=== PATIENT | male | born 1935 | race Caucasian/White ===

== ENCOUNTER 2016-11-03 03:54 | Inpatient (IN) | payer MEDICARE ==
[2016-11-03] VITALS (9 sets, daily range): BP systolic 116–135; BP diastolic 49–73; PULSE 83–109; RESP 20–24; O2SAT 91–95
[~2016-11-03] VITALS: Ht 185.4 cm; Wt 103.2 kg
[~2016-11-03 03:54] MED LIST: SERT50TA PO; SIMV10TA4 PO; WARF4TAB PO
--- NOTE | 2016-11-03 03:57 | ED.REPORT ---
HPI-Chest Pain 40 and Over Date of Service Nov 03, 2016 ED Provider: Dewey Mcqueen MD Patient is a 80 year old male with a cardiac pacemaker and a history of atrial fibrillation on Warfarin, coronary artery disease, hypertension, and hyperlipidemia who presents to the ED via EMS due to generalized weakness causing ground level fall this morning. The patient states that he got up to go to the bathroom and he suddenly became weak, falling to the ground. He laid on the ground for nearly an hour and stated that he was unable to get up on his own. He is unable to clarify if he hit his head. His heard him calling for her and she called EMS. EMS reports that on arrival they found the patient pale and diaphoretic lying on the ground. He was tachycardic, hypotensive, and had a O2 sat of 92% on 4L oxygen. He is afebrile. Patient reports some bilateral hip pain but denies any other injuries. His states that the patient was behaving normally all day yesterday, with the exception of the patient vomiting after dinner at 6pm. She states that the patient has not complained of chest pain, abdominal pain, or shortness of breath. Patient is hard of hearing and states that he left his hearing aids at home, which limits the patient's ability to provide meaningful history. Nursing Notes Stated Complaint: ALTERED MENTAL STATUS Nursing Notes Reviewed: Yes Allergies: Coded Allergies: No Known Allergies (Verified Allergy, Unknown, 03/11/16) Scheduled Sertraline HCl (Zoloft) 50 Mg Tablet 50 MG PO DAILY Simvastatin (Simvastatin) 10 Mg Tablet 10 MG PO HS Warfarin Sodium (Coumadin) 4 Mg Tablet 4 MG PO DAILY General Time Seen by MD: 03:57 Chief Complaint Other (GLF, hip pain, weakness) Unable to Obtain Hx: Patient condition (limited, as patient is hard of hearing) Sudden in Onset?: No Onset Occurred: 1 - 4 hours ago Symptom Duration: Since onset Quality: Painful Severity: Current: Moderate Severity: Maximum: Moderate Recent Healthcare: No recent doctor visit, No recent hospitalization Similar Sx Previous: No Past Medical History Past Medical History History of "melanoma" on hands Hard of hearing Valvular heart disease (mild IA) BPH kidney stones with history of obstructive uropathy Reports: Cancer, Coronary artery disease, Hyperlipidemia, Hypertension Reports: Atrial fibrillation, Depression Past Surgical History 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 Family History Noncontributory Smoking History Former Smoker Social History Other Social History: Local resident Ambulatory Status Independent Review of Systems Unable to Obtain ROS Patient condition (limited by patient's hearing) Constitutional: Reports: Weakness - generalized, Denies: Fever Respiratory: Denies: Shortness of breath Cardiovascular: Denies: Chest pain GI: Reports: Nausea, Vomiting, Denies: Abdominal pain Musculoskeletal: Reports: Extremity pain Physical Exam Initial Vital Signs Vital Signs (First) Date Time Temp Pulse Resp B/P Pulse Ox O2 Delivery O2 Flow Rate FiO2 11/03/16 04:03 37.5 96 24 122/49 91 Nasal Cannula 4 Initial VS: Reviewed Head / Eyes: Atraumatic, Normocephalic, PERRL Psychiatric: Mood/affect normal, Behavior normal, Normal thought content General/Constitutional: Awake, Alert, Well hydrated Appearance / Presentation: Positive: Obese very hard of hearing Respiratory / Chest: Breath sounds NL, Breath sounds = bilat, No respiratory distress, No rales, No rhonchi, No wheezing Cardiovascular: Heart rate NL, Regular rhythm, Heart sounds NL Abdomen: Soft, Non-tender Organomegaly / Mass / Hernia: Positive: Hernia ventral, Negative: Hernia is tender Neck: Supple, Full range of motion Lower Extremity / Pelvis / MS: No deformity, Neurologic intact, Vascular intact Right Hip: Negative: Leg externally rotated, Leg shortened Left Hip: Negative: Leg externally rotated, Leg shortened indicates bilateral hip pain Skin: Color NL, Warm, Dry Neurologic: Speech NL, No motor deficits (moving all four extremities), No sensory deficits ENT: Airway patent, Mucous membranes moist Upper Extremity / MS: No deformity, Neurologic intact, Vascular intact Interpretation & Diagnostics Lab Results Interpretation Result Diagram: 11/03/16 0355 11/03/16 0355 Test 11/03/16 03:55 White Blood Count 13.0th/mm3 (3.8-10.1) Red Blood Count 4.39mil/mm3 (4.40-5.80) Hemoglobin 9.7g/dL (13.8-17.2) Hematocrit 35.8% (41.0-50.0) Mean Corpuscular Volume 81.5fL (81-100) Mean Corpuscular Hemoglobin 22.1pg (27.0-35.0) Mean Corpuscular Hemoglobin Concent 27.1% (32.0-37.0) Red Cell Distribution Width 16.0% (12.3-15.4) Platelet Count 300bil/L (150-400) Neutrophils (%) (Auto) 76.6% (40-74) Lymphocytes (%) (Auto) 13.2% (14-46) Monocytes (%) (Auto) 8.7% (4-12) Eosinophils (%) (Auto) 0.7% (0-5) Basophils (%) (Auto) 0.6% (0-3) Hold Purple Top Tube Received (Received) Prothrombin Time 14.3sec (8.1-12.5) Prothromb Time International Ratio 1.33ratio Activated Partial Thromboplast Time 28.7sec (22.8-33.0) D-Dimer 0.8mg/L (<0.50) Hold Blue Top Tube Received (Received) Sodium Level 140mEq/L (134-144) Potassium Level 4.0mEq/L (3.5-5.2) Chloride Level 102mEq/L (97-108) Carbon Dioxide Level 16mmol/L (18-29) Blood Urea Nitrogen 18mg/dL (8-27) Creatinine 1.09mg/dL (0.76-1.27) Estimat Glomerular Filtration Rate 69mL/min (>59) Glucose Level 146mg/dL (60-99) Calcium Level 8.7mg/dL (8.5-10.1) Magnesium Level 1.7mg/dL (1.6-2.6) Total Bilirubin 0.6mg/dL (0.0-1.2) Aspartate Amino Transf (AST/SGOT) 14U/L (0-50) Alanine Aminotransferase (ALT/SGPT) 8U/L (0-44) Alkaline Phosphatase 73U/L (25-160) Total Creatine Kinase 63U/L (21-232) Creatine Kinase MB 1.3ng/mL (0.0-10.4) Creatine Kinase MB % % (0.0-5.0) Troponin T 0.010ug/L (0.0-0.011) Pro-B-Type Natriuretic Peptide 1001pg/mL (0-486) Total Protein 7.2g/dL (6.4-8.4) Albumin 3.6g/dL (3.4-5.0) Hold Red Top Tube Received (Received) Hold [place] Top Tube Received (Received) ECG Interpretation ECG Interpretation: Sinus rhythm, Rate 95 Intraventricular conduction delay. Q waves inferiorly and ST segment sagging anteriorly and laterally. No acute infarction. Paced? Time: 04:04 Interpreted by: ED physician X-Ray Chest Interpretation Chest Xray Interpretation: Impression: Right lower lobe pneumonia versus eventration of the right hemidiaphragm. View: Portable Interpretation / Wet Read by: Wet read ED physician X-Ray Interpretation Xray Interpretation: Impression: No acute fracture. X-Ray Ordered: Pelvis Interpretation / Wet Read by: Wet read ED physician CT Head Interpretation CONCLUSION: Moderate atrophy and periventricular white matter changes consistent with the patient's age. Encephalomalacia in both frontal lobes suggesting previous injury or infarct. Old lacunar infarcts bilaterally. No hemorrhage or other specific acute abnormality demonstrated. Radiologist: Mike Chatman MD 11/03/2016 - 4:36:[address] Chest Interpretation CONCLUSION: No evidence of pulmonary embolism or dissection on this somewhat limited exam due to motion artifact. No specific acute abnormality. Radiologist: Mike Chatman MD 11/03/2016 - 5:46:52 AM [facility] Study type: CT pulm angiogram Interpretation / Wet Read by: Interpret - Radiologist Re-Eval/Medical Decision Med Decision/Clinical Course 80-year-old with chronic A. fib on Coumadin and suffered a ground-level fall and was unable to get up for about an hour. He has persistent generalized weakness and no other particularly focal complaints. 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 His chest has a density in the right lower lobe that appeared to be a pneumonia, though there is not a distinct shadow sign on any of the long margins. He had a d-dimer elevation and the CT angiogram does not show pulmonary embolus, umbilicus did not show a definitive pneumonia. He had been started on pneumonia protocol with Rocephin and azithromycin for community [address] pneumonia. He is in any case generally weak, unable to ambulate which is new, and is mildly anticoagulated with an INR 1.33. He will require repeat CT scan in eight hours. He is admitted to the medicine service for further evaluation and management. Source of Hx: Old records Time of Eval: 04:28 Re-Evaluation/Progress Note: Patient is now joined by his , who is able to provide some additional history. Time of Eval: 05:45 Re-Evaluation/Progress Note: Informed the patient and his family of the plan for hospital admission. They understand and agree with this plan. Discussed the results of his labs, EKG, and x-rays. All questions were addressed. Consultation : Referral / Consult Name: Dai Hernandez DO Consulted With: Hospitalist Call Returned at: 05:58 Medicare Insurance Specialist: Will see patient, Agrees with eval, Agrees with plan, Accepts admit Note: Spoke with Dr. Hernandez, hospitalist, who agrees to accept admit. Counseled Regarding: Diagnosis, Lab results, Need for admission Discharge & Departure Primary Impression: Right lower lobe pneumonia Pneumonia type: due to unspecified organism Qualified Code: J18.9 - Pneumonia, unspecified organism Additional Impressions: Generalized weakness Fall from ground level Warfarin anticoagulation Disposition: ADMITTED TO HOSPITAL Discharge Condition All VS Reviewed: Yes Condition: Stable Referrals: Geovanny Shah DO (PCP) Scribe Attestation Portions of this note were transcribed by Gloria Danielle. I, Dr. Mcqueen personally performed the history, physical exam and medical decision-making; I reviewed and confirmed the accuracy of the information in the transcribed note. Signed by: Rhonda Reyes, 11/03/2016 0602 copies to: Geovanny Shah Christopher W MD Nov 03, 2016 03:57 Gloria Danielle Nov 03, 2016 04:11
[2016-11-03 04:14] LABS: BASOPHILS % (AUTO) 0.6 % (0-3); EOSINOPHILS % (AUTO) 0.7 % (0-5); MONOCYTES % (AUTO) 8.7 % (4-12); Mean Corpuscular Hemoglobin 22.1 pg (27.0-35.0); Mean Corpuscular Volume 81.5 fL (81-100); NEUTROPHILS % (AUTO) 76.6 % (40-74); Platelet Count 300 bil/L (150-400)
[2016-11-03 04:26] LABS: D-DIMER 0.8 mg/L (<0.50); INR 1.33 ratio
[2016-11-03 04:52] LABS: Creatine Kinase 63 U/L (21-232); Magnesium 1.7 mg/dL (1.6-2.6)
[2016-11-03] MEDS ORDERED: Azithromycin Inj 500 MG in Dextrose 5% w/Vial Mate 250 ML IV ONE (06:00)
[2016-11-03] MEDS ORDERED: cefTRIAXone 2,000 mg/D5W 50 mL IV Minibag Plus IV ONE ×2 (06:05)
[2016-11-03] MEDS ORDERED: Alum-Mag Hydrox-Simeth 30 mL Suspension PO PRN ×2 (06:40→08:15)
[2016-11-03] MEDS ORDERED: Polyethylene Glycol (PEG) 17 Gm Powder PO PRN ×2 (06:40→08:15)
[2016-11-03] MEDS ORDERED: Ondansetron 2 mg/mL 2 mL Inj IVPUSH PRN (06:40)
--- NOTE | 2016-11-03 07:38 | DRSVH ---
PROCEDURE: X-RAY CHEST ONE VIEW, PORTABLE ([id number]) INDICATIONS: fall, hip pain bilat TECHNIQUE: One view of the chest was acquired. COMPARISON: [facility], CT, CT ANGIO CHEST PE, 11/03/2016, 5:24. [facility], CR, XR CHEST 1VW (PORTABLE), 11/13/2015, 9:44. [facility], CR, XR CHEST 2VW, 08/29/2015, 8:26. FINDINGS: Surgical changes and devices: Left-sided pacer. Lungs and pleura: No pleural effusions or pneumothorax. Lungs are clear. Mediastinum: Mediastinal contours appear normal. Heart size is enlarged. Bones and chest wall: No suspicious bony lesions. Overlying soft tissues appear unremarkable. IMPRESSION: No acute process. Dictated by: Devora Valencia M.D. on 11/03/2016 at 7:35 Approved by: Devora Valencia M.D. on 11/03/2016 at 7:36
--- NOTE | 2016-11-03 07:39 | DRSVH ---
PROCEDURE: X-RAY PELVIS WITH BILATERAL HIPS ([id number]) INDICATIONS: fall, hip pain bilat TECHNIQUE: AP pelvis with lateral view(s) of the bilateral hip(s). COMPARISON: None. FINDINGS: Bones: No fractures or dislocations. Pelvic ring appears intact. No suspicious bony lesions. Soft tissues: The visualized bowel gas pattern is normal. No suspicious soft tissue calcifications. IMPRESSION: No acute fracture. No osseous lesion. If clinical suspicion and/or symptoms persist, fur ther assessment with repeat plainfilms, or advanced imaging (e.g., CT, MRI, or bone scan) may be help ful for further assessment. REFERENCE TEXT DELETE FROM FINAL REPORT Types of femoral neck fractures: subcapital, transcervical, basicervical, intertrochanteric, subtroch anteric. Dictated by: Devora Valencia M.D. on 11/03/2016 at 7:36 Approved by: Devora Valencia M.D. on 11/03/2016 at 7:37
--- NOTE | 2016-11-03 07:49 | DRSVH ---
PROCEDURE: CT BRAIN WITHOUT CONTRAST ([id number]) INDICATIONS: generalized weakness, GLF TECHNIQUE: Noncontrast 4.5 mm thick angled axial sections acquired from the foramen magnum to the vertex, with c oronal reformats. COMPARISON: None. FINDINGS: Image quality: Excellent. CSF spaces: Basal cisterns are patent. No extra-axial fluid collections. The ventricles are symmet preston in size and shape. Brain: No intracranial bleeds or masses. Chronic right anteromedial frontal lobe infarct is present . There is cerebral volume loss for age, with resultant ventricular and sulcal prominence. There are periventricular and deep white matter chronic small vessel ischemic changes. There is intracranial internal carotid artery atherosclerosis. Skull and face: Calvarium and visualized facial bones appear intact, without suspicious lesions. Sinuses: Visualized sinuses and mastoids are clear. IMPRESSION: 1. Volume loss and small vessel ischemic disease. 2. Chronic right frontal infarct. 3. No acute process. 4. Concordant with preliminary interpretation. Dictated by: Devora Valencia M.D. on 11/03/2016 at 7:46 Approved by: Devora Valencia M.D. on 11/03/2016 at 7:47
--- NOTE | 2016-11-03 07:56 | DRSVH ---
PROCEDURE: CT ANGIO CHEST PULMONARY EMBOLISM ([id number]) INDICATIONS: weakness, elevated d dimer TECHNIQUE: After the administration of intravenous contrast, 2 mm thick sections acquired from the pulmonary api vilma to the posterior costophrenic angles. 3-dimensional maximum intensity projection (MIP) coronal a nd sagittal reformats were then acquired through the thorax. For radiation dose reduction, the follo wing was used: automated exposure control, adjustment of mA and/or kV according to patient size. COMPARISON: [facility], CR, XR CHEST 1VW (PORTABLE), 11/03/2016, 4:29. [facility], CT, CT ANGIO CHEST PE, 11/13/2015, 11:35. FINDINGS: Image quality: Examination limited by motion artifact. Pulmonary arteries: Pulmonary arteries are normal in size, and demonstrate no intraluminal filling d efects to suggest central pulmonary embolism. Lungs and pleura: Previously seen 6 mm diameter right lower lobe nodule is unchanged. No pleural effu sions or pneumothorax. Central and peripheral airways are patent. Mediastinum: Heart size is normal, without pericardial effusion. There is calcification of the ramsey nary vasculature. A increased, mildly prominent mediastinal and hilar lymph nodes are present. 16 mm short axis precarinal lymph node is present. 15 mm short axis right, and 16 mm short axis left hilar lymph nodes are present. aorta is normal in caliber and enhancement. Esophagus is normal in caliber, without hiatal hernia. Bones and chest wall: Left-sided pacer. No suspicious bony lesions. Ribs and thoracic spine appear i ntact throughout. Thyroid gland is within normal limits. No axillary or supraclavicular adenopathy. Abdomen: Visualized portions of the upper abdomen demonstrate no change in bilateral adrenal nodules , no change in the low-density posterior splenic focus, and no change in the small low density focus involving the pancreatic body/tail junction. IMPRESSION: 1. No pulmonary embolus. 2. Mildly prominent mediastinal lymph nodes, possibly reactive. Followup chest CT with intravenous co ntrast in 3 months is recommended to ensure resolution, and to exclude underlying neoplasm. 3. No change in bilateral adrenal nodules, as well as low-density foci within the pancreas and spleen . 4. Coronary artery disease. 5. No change in 6 mm diameter right lower lobe nodule. Dictated by: Devora Valencia M.D. on 11/03/2016 at 7:47 Approved by: Devora Valencia M.D. on 11/03/2016 at 7:53
[2016-11-03] MEDS ORDERED: OMEG-38 PO (09:05)
--- NOTE | 2016-11-03 10:33 | NUR ---
ADMIT Patient arrived on floor at 0700, off going o and m supervisor RN completed admission, med rec completed by admit RN. Oriented to room and call light, DVD played for patient and family. Patient very [place]. Patient on 4L O2 (baseline) maintaining sats in mid 90s. Bed low and locked, call light in reach, care and rounding ongoing.
[2016-11-03] MEDS: 0.9% Sodium Chloride 1,000 ML IV SCH ×2 (11:05→19:32)
--- NOTE | 2016-11-03 14:50 | NUR ---
Social Work-initial assessment: Data:See initial assessment. Pt is a 80 y/o male who was admitted on 11/03/16 for Pneumonia per H&P. Pt's insurance is [facility] and PCP is Geovanny Shah MD. EMR Reviewed. KARTHIKEYAN met with pt and Gayla at bedside to discuss discharge planning, SW role explained. Pt is alert and oriented x3. Pt resides at [facility] [place] [facility] [place] where he remains independent with ADLs. Pt uses a cane at baseline and does not drive. Pt has had HH in the past through [facility] and has no SNF history. Pt has no termite control servicer care insurance and no VA benefits. SW discussed DPOA/ advanced directive, pt's states they have completed this, SW encouraged them to bring a copy into the hospital. Pt is currently on O2, but this is not pt's baseline. Pt may benefit from PT evaluation. Pt's anticipates pt to return home. SW provided phone number and plan on white board in room. R/O HH needs.F2F in folder. SW will continue to follow. Assessment:Pt who is independent at baseline. Plan:Pt to discharge home when medically stable via POV. R/O HH services. PT evaluation is pending. F2F in folder. SW will continue to follow. JOSE JUAN Beyer Addendum: 11/03/16 at 1458 by BERTA JOHNS SS Amended: Links added.
--- NOTE | 2016-11-03 17:23 | PCM.HPMED ---
Subjective Date of Service Nov 03, 2016 Primary Provider: Admitting Physician: Dai Hernandez DO Primary Care Physician: Geovanny Shah DO Attending Physician: Dai Hernandez DO Chief Complaint: Shortness of breath History of Present Illness: Patient is a 80-year-old gentleman who lives at home with his who presented with the complaint of increasing shortness of breath. The patient states that for the last few days he has had an increase in shortness of breath but denies any chest pain, fever, chills, nausea, vomiting, diarrhea. The patient was found to be hypoxic in the emergency room but responded to oxygen therapy. The states that she too has also been sick lately and that the patient may have caught the cold that she may have had. The patient was found to be influenza A positive and admitted for supportive care. 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 Please see HPI for pertinent positives. Physical Exam: GEN: Patient was awake, alert, responding appropriately to questions HEENT: PERRLA, EOMI, Neck soft supple, trachea midline, nomocephalic/atraumatic , mucous membranes dry CV: +S1/S2, RRR, positive systolic murmurs auscultated Respiratory: Coarse breath sounds, positive wheezing, no rales or rhonchi GI: +bowel sounds x4, soft, compressible, non TTP EXT: no c/c/e, left knee abrasion noted Neuro: CN II-XII grossly intact Psych: mood and affect were appropriate Assessment and Plan Leukocytosis in the setting of Influenza A positive -White blood cell count 13 -Lactic acid 1.5 -Maintain oxygen saturations at 92% or above -Continue supportive care -Blood cultures pending -We will continue to monitor Dehydration -Continue normal saline running at 100 mL an hour -We will continue to monitor Anemia -Hemoglobin and hematocrit 9.7/35.8 -We will continue to monitor ?UTI -Urine culture pending Hypertension -Currently controlled continue all home medications Hyperlipidemia -Continue simvastatin daily CAD -Patient is currently paced. DVT prophylaxis continue home warfarin per pharmacy to manage Diet: Regular Code Status: DNR/DNI VTE Mechanical Devices: Intermittant Pneumatic CD Resuscitation Status: DNR/DNI:Do Not Resuscitate/Intubate Michelle Medina DO Nov 03, 2016 17:23
--- NOTE | 2016-11-03 20:25 | PCM.CONPHA ---
Subjective Shortness of breath Objective Vital Signs Date Time Temp Pulse Resp B/P Pulse Ox O2 Delivery O2 Flow Rate FiO2 11/03/16 18:25 37.0 83 22 126/73 92 Nasal Cannula 3.50 11/03/16 14:00 37.1 91 22 116/66 91 Nasal Cannula 3.50 11/03/16 10:14 108 11/03/16 07:40 Supplement Oxygen 11/03/16 07:39 92 11/03/16 07:08 37.4 91 24 135/72 93 Nasal Cannula 4.50 11/03/16 06:21 109 20 131/62 95 Nasal Cannula 3 11/03/16 04:03 37.5 96 24 122/49 91 Nasal Cannula 4 Weight (Kilograms): 102.400 Height (Feet): 6 Height (Inches): 1.00 Test 11/03/16 03:55 11/03/16 07:13 11/03/16 11:00 White Blood Count 13.0th/mm3 (3.8-10.1) Red Blood Count 4.39mil/mm3 (4.40-5.80) Hemoglobin 9.7g/dL (13.8-17.2) Hematocrit 35.8% (41.0-50.0) Mean Corpuscular Volume 81.5fL (81-100) Mean Corpuscular Hemoglobin 22.1pg (27.0-35.0) Mean Corpuscular Hemoglobin Concent 27.1% (32.0-37.0) Red Cell Distribution Width 16.0% (12.3-15.4) Platelet Count 300bil/L (150-400) Neutrophils (%) (Auto) 76.6% (40-74) Lymphocytes (%) (Auto) 13.2% (14-46) Monocytes (%) (Auto) 8.7% (4-12) Eosinophils (%) (Auto) 0.7% (0-5) Basophils (%) (Auto) 0.6% (0-3) Hold Purple Top Tube Received (Received) Prothrombin Time 14.3sec (8.1-12.5) Prothromb Time International Ratio 1.33ratio Activated Partial Thromboplast Time 28.7sec (22.8-33.0) D-Dimer 0.8mg/L (<0.50) Hold Blue Top Tube Received (Received) Sodium Level 140mEq/L (134-144) Potassium Level 4.0mEq/L (3.5-5.2) Chloride Level 102mEq/L (97-108) Carbon Dioxide Level 16mmol/L (18-29) Blood Urea Nitrogen 18mg/dL (8-27) Creatinine 1.09mg/dL (0.76-1.27) Estimat Glomerular Filtration Rate 69mL/min (>59) Glucose Level 146mg/dL (60-99) Calcium Level 8.7mg/dL (8.5-10.1) Magnesium Level 1.7mg/dL (1.6-2.6) Total Bilirubin 0.6mg/dL (0.0-1.2) Aspartate Amino Transf (AST/SGOT) 14U/L (0-50) Alanine Aminotransferase (ALT/SGPT) 8U/L (0-44) Alkaline Phosphatase 73U/L (25-160) Total Creatine Kinase 63U/L (21-232) Creatine Kinase MB 1.3ng/mL (0.0-10.4) Creatine Kinase MB % % (0.0-5.0) Troponin T 0.010ug/L (0.0-0.011) Pro-B-Type Natriuretic Peptide 1001pg/mL (0-486) Total Protein 7.2g/dL (6.4-8.4) Albumin 3.6g/dL (3.4-5.0) Procalcitonin 0.23ng/mL (See Comment) Hold Red Top Tube Received (Received) Hold [place] Top Tube Received (Received) Lactic Acid Level 1.5mmol/L (0.4-2.0) Hold Urine Received (Received) Assessment/Plan Assessment/Plan WARFARIN PER PHARMACY ASSESMENT PLAN PT ON WARFARIN FOR A FIB. HIS HOME DOSE IS 4 MG HE DID NOT TAKE MED 11/01 ( DAY BEFORE ADMIT) INR SHORTLY AFTER ADMIT ( 11/03) WAS 1.33;A DOSE OF 4 MG WAS GIVEN. PT'S INR GOAL RANGE IS 2-3 HE IS ALSO ON SERTRALINE WHICH MAY HAVE AN IMPACT ON INR. PHARMACY WILL CHECK INR DAILY AND ADJUST DOSINGS NECESSARY [facility]CILLA [facility] . Alysha Zaragoza Nov 03, 2016 20:25
[2016-11-03 22:37] LABS: APPEARANCE,URINE SLIGHTLY CLOUDY (CLEAR,HAZY); COLOR,URINE DARK YELLOW (YELLOW)
[2016-11-03 22:38] LABS: OCCULT BLOOD,URINE LARGE (NEGATIVE); UROBILINOGEN,URINE NORMAL (NORMAL)
[2016-11-04] VITALS (9 sets, daily range): BP systolic 135–156; BP diastolic 76–80; PULSE 93–117; RESP 20–22; O2SAT 88–92
[2016-11-04 07:14] LABS: BASOPHILS % (AUTO) 0.9 % (0-3); EOSINOPHILS % (AUTO) 0.2 % (0-5); MONOCYTES % (AUTO) 12.4 % (4-12); Mean Corpuscular Hemoglobin 22.6 pg (27.0-35.0); Mean Corpuscular Volume 83.7 fL (81-100); NEUTROPHILS % (AUTO) 71.2 % (40-74); Platelet Count 162 bil/L (150-400)
[2016-11-04] MEDS: Ondansetron 2 mg/mL 2 mL Inj IVPUSH PRN (07:16)
[2016-11-04 07:38] LABS: INR 1.17 ratio
[2016-11-04] MEDS: 0.9% Sodium Chloride 1,000 ML IV SCH ×2 (07:54→17:03)
--- NOTE | 2016-11-04 11:20 | PCM.PHAPRO ---
Progress Shortness of breath RPh RR rtm Date Nov 04-Oct INR 1.33 1.17 INR change - -0.16 Warf Dose 4 MG DAILY 6 Initiated bridge , enox 100bid. stop when appropriate. Daryl Herrera Nov 04, 2016 11:20
--- NOTE | 2016-11-04 17:01 | PCM.PNMED ---
Subjective Date of Service Nov 04, 2016 Subjective Patient was examined at bedside today. Patient denies any chest pain, shortness of breath, nausea, diarrhea. Patient reports nausea Exam Vital Signs Vital Sign - Last Date Time Temp Pulse Resp B/P Pulse Ox O2 Delivery O2 Flow Rate FiO2 11/04/16 14:00 37.2 93 20 135/78 90 Nasal Cannula 3.50 Intake and Output 11/03/16 11/03/16 11/04/16 Cumulative From/Thru 15:00 23:00 07:00 11/03/16 04:03 - 11/04/16 06:55 Intake Total 1167 ml 1145 ml 2312 ml Output Total 150 ml 200 ml 350 ml Balance -150 ml 1167 ml 945 ml 1962 ml Intake Oral 500 ml 400 ml 900 ml IV Total 667 ml 745 ml 1412 ml Output Urine Total 150 ml 200 ml 350 ml # Voids 2 6 8 # Bowel Movements 0 1 1 Exam GEN: Patient was awake, alert, responding appropriately to questions HEENT: PERRLA, EOMI, Neck soft supple, trachea midline, nomocephalic/atraumatic , mucous membranes dry CV: +S1/S2, tachycardic, positive systolic murmurs auscultated Respiratory: Coarse breath sounds, positive wheezing, no rales or rhonchi GI: +bowel sounds x4, soft, compressible, non TTP EXT: no c/c/e, left knee abrasion noted, Neuro: CN II-XII grossly intact Psych: mood and affect were appropriate IVs and Medications Medications Reviewed: Medications were reviewed in detail Medications Current Medications Al Hydrox/Mg Hydrox/Simethicone 30 ml Q6H PRN PO; Start 11/03/16 at 06:40; Status Cancel Ondansetron HCl 4 to 8 mg Q4H PRN IVPUSH; Start 11/03/16 at 06:40; Status Cancel Senna 17.2 mg BID PRN PO; Start 11/03/16 at 06:40; Status Cancel Polyethylene Glycol 17 gm DAILY PRN PO; Start 11/03/16 at 06:40; Status Cancel Al Hydrox/Mg Hydrox/Simethicone 30 ml Q6H PRN PO; Start 11/03/16 at 08:15 Ondansetron HCl 4 to 8 mg Q4H PRN IVPUSH Last administered on 11/04/16 07:16; Admin Dose 4 MG; Start 11/03/16 at 08:15 Senna 17.2 mg BID PRN PO; Start 11/03/16 at 08:15 Polyethylene Glycol 17 gm 17 gm DAILY PRN PO; Start 11/03/16 at 08:15 Sodium Chloride 1,000 ml @ 100 mls/hr Q10H IV Last administered on 11/04/16 07 :54; Admin Dose 100 MLS/HR; Start 11/03/16 at 10:55 Sertraline HCl 50 mg DAILY PO Last administered on 11/04/16 09:14; Admin Dose 50 MG; Start 11/03/16 at 17:15 Atorvastatin Calcium 10 mg HS PO Last administered on 11/03/16 19:32; Admin Dose 10 MG; Start 11/03/16 at 21:00 Pharmacy Consult 1 ea DAILY@17 XX; Start 11/04/16 at 17:00 Calcium Carbonate 500 mg TIDWM PO Last administered on 11/04/16 11:59; Admin Dose 500 MG; Start 11/04/16 at 12:00 Enoxaparin Sodium 100 mg BID SUBQ Last administered on 11/04/16 11:58; Admin Dose 100 MG; Start 11/04/16 at 11:17 Lab and Diagnostics Result Diagram: 11/04/16 0650 11/04/16 0650 Assessment & Plan Assessment and Plan Leukocytosis in the setting of Influenza A positive -White blood cell count 13 yesterday currently 4.4 -Maintain oxygen saturations at 92% or above -Continue supportive care -Blood cultures -We negative 2 days will continue to monitor Dehydration -Continue normal saline running at 100 mL an hour -We will continue to monitor Anemia -Hemoglobin and hematocrit 9.7/35.8 -We will continue to monitor ?UTI -Urine culture pending Hypertension -Currently controlled continue all home medications Hyperlipidemia -Continue simvastatin daily CAD -Patient is currently paced. DVT prophylaxis continue home warfarin per pharmacy to manage Diet: Regular Code Status: DNR/DNI Disposition: Patient is currently progressing well. Patient is oxygen dependent and needs to be weaned off the oxygen. Patient is progressing well and monitor. VTE Mechanical Devices: Intermittant Pneumatic CD Resuscitation Status: DNR/DNI:Do Not Resuscitate/Intubate Michelle Medina DO Nov 04, 2016 17:01
[2016-11-05] VITALS (12 sets, daily range): BP systolic 117–160; BP diastolic 64–77; PULSE 73–114; RESP 20–24; O2SAT 58–99
[2016-11-05] MEDS: 0.9% Sodium Chloride 1,000 ML IV SCH (03:42)
--- NOTE | 2016-11-05 05:20 | NUR ---
O2 Needs/Pain/febrile: Pt was on 2L O2 NC with first assessment, RN noted O2 sats during the day to be around 90%. Prior to HS, pt desating low to mid 80's, pt placed on 5L O2 with oxymask, sats maintained around 90-94%, does desat to 80's and down to 70's on RA. Pt c/o LORD 5/10, Tylenol: effective. Pt was febrile at 38.3 at HS, Tylenol administered for LORD and temp. RN was passed in report that pt had been febrile during dayshift. Addendum: 11/05/16 at 0526 by BELA YODER RN Pt slept off/on throughout the night, pleasant and cooperative with care. at bedside. Addendum: 11/05/16 at 0620 by BELA YODER RN MD was made aware of O2 needs. No new orders at this time.
[2016-11-05 05:50] LABS: Mean Corpuscular Hemoglobin 22.3 pg (27.0-35.0); Mean Corpuscular Volume 84.9 fL (81-100)
[2016-11-05 06:02] LABS: INR 1.08 ratio
[2016-11-05] MEDS: Ondansetron 2 mg/mL 2 mL Inj IVPUSH PRN (10:55)
[2016-11-05] MEDS ORDERED: Albuterol-Ipratropium 3 mL Inhalation Solution ONE (11:24)
[2016-11-05] MEDS ORDERED: Albuterol-Ipratropium 3 mL Inhalation Solution NEB SCH (12:30)
--- NOTE | 2016-11-05 13:24 | PCM.PHAPRO ---
Progress Shortness of breath WARFARIN MANAGEMENT PER PHARMACY [facility] RR rtm DFF Date Nov 04-Nov 05-Oct INR 1.33 1.17 1.08 INR change - -0.16 -0.09 Warf Dose 4 MG DAILY 3 7.5 Sub-therapeutic INR that has down-trended since yesterday. Warfarin 3 mg given instead of 6 mg. Will increase the dose for today to warfarin 7.5 mg x 1 to make up difference of prior dose increase. Pharmacy will continue to monitor. Dane Khan, PharmD Dane Khan Nov 05, 2016 13:24
--- NOTE | 2016-11-05 13:40 | PCM.PNMED ---
Subjective Date of Service Nov 05, 2016 Subjective Patient was examined at bedside today. Patient denies any chest pain, nausea, vomiting, diarrhea. Patient still is having shortness of breath. Patient was actually up in a chair today which is an improvement. Nursing reported that the patient is still needing high flow oxygen in order to maintain saturations are 91%. Exam Vital Signs Vital Sign - Last Date Time Temp Pulse Resp B/P Pulse Ox O2 Delivery O2 Flow Rate FiO2 11/05/16 11:30 104 20 95 OxyMask 5.00 11/05/16 09:38 36.6 132/72 Intake and Output 11/04/16 11/04/16 11/05/16 Cumulative From/Thru 15:00 23:00 07:00 11/03/16 04:03 - 11/05/16 06:43 Intake Total 2190 ml 1083 ml 5585 ml Output Total 350 ml Balance 2190 ml 1083 ml 5235 ml Intake Oral 640 ml 1540 ml IV Total 1550 ml 1083 ml 4045 ml Output Urine Total 350 ml # Voids 4 12 # Bowel Movements 1 Exam Physical Exam: GEN: Patient was awake, alert, responding appropriately to questions HEENT: PERRLA, EOMI, Neck soft supple, trachea midline, nomocephalic/atraumatic CV: +S1/S2, RRR, no murmurs auscultated Respiratory: Coarse breath sounds, positive wheezing and rhonchi GI: +bowel sounds x4, soft, compressible, non TTP EXT: no c/c/e Neuro: CN II-XII grossly intact Psych: mood and affect were appropriate IVs and Medications Medications Reviewed: Medications were reviewed in detail Medications Current Medications Sertraline HCl 50 mg DAILY PO Last administered on 11/05/16 09:47; Admin Dose 50 MG; Start 11/03/16 at 17:15 Atorvastatin Calcium 10 mg HS PO Last administered on 11/04/16 20:49; Admin Dose 10 MG; Start 11/03/16 at 21:00 Pharmacy Consult 1 ea DAILY@17 XX; Start 11/04/16 at 17:00 Calcium Carbonate 500 mg TIDWM PO Last administered on 11/05/16 09:47; Admin Dose 500 MG; Start 11/04/16 at 12:00 Enoxaparin Sodium 100 mg BID SUBQ Last administered on 11/05/16 09:47; Admin Dose 100 MG; Start 11/04/16 at 11:17 Oseltamivir Phosphate 75 mg BID PO Last administered on 11/05/16 09:47; Admin Dose 75 MG; Start 11/04/16 at 20:30; Stop 11/09/16 at 08:31 Acetaminophen 650 mg Q6H PRN PO Last administered on 11/04/16 23:06; Admin Dose 650 MG; Start 11/04/16 at 22:50 Albuterol/ Ipratropium 3 ml Q4 NEB; Start 11/05/16 at 12:30; Stop 11/05/16 at 12 :30; Status DC Albuterol/ Ipratropium 3 ml Q4H NEB; Start 11/05/16 at 15:30 Lab and Diagnostics Result Diagram: 11/05/16 0527 11/05/16526 Assessment & Plan 80-year-old male presents with shortness of breath and acute respiratory distress secondary to influenza Leukocytosis in the setting of Influenza A positive -White blood cell count 13 yesterday currently 4.4 -Maintain oxygen saturations at 92% or above -Continue supportive care -Start prednisone 40 mg daily -Chest x-ray ordered for today -Start Incentive spirometry -Blood cultures negative 2 -We days will continue to monitor Dehydration (resolving) -Discontinue IV fluids -We will continue to monitor Anemia -Hemoglobin and hematocrit 8.3/30.7 yesterday, today 8.7/33.2 trending up -We will continue to monitor ?UTI -Urine culture currently no growth to date pending final results Hypertension -Start lisinopril 2.5 mg daily Hyperlipidemia -Continue simvastatin daily CAD -Patient is currently paced. DVT prophylaxis continue home warfarin per pharmacy to manage Diet: Regular Code Status: DNR/DNI Disposition: Patient still has very high demand oxygen needs. We will repeat the chest x-ray to rule out pneumonia as the patient has had increasing oxygen needs but has not had any leukocytosis, patient may have an atypical pneumonia or this could just be the effects of influenza A infection. We will continue to monitor and wean the patient off of oxygen as necessary. Steroid therapy has been started and we will see how the patient responds to this. VTE Mechanical Devices: Intermittant Pneumatic CD Resuscitation Status: DNR/DNI:Do Not Resuscitate/Intubate Time spent Greater than 35 minutes Michelle Medina DO Nov 05, 2016 13:39
--- NOTE | 2016-11-05 14:13 | DRSVH ---
PROCEDURE: X-RAY CHEST ONE VIEW, PORTABLE ([id number]) INDICATIONS: SOB, possible pneumonia in the setting of influenz TECHNIQUE: One view of the chest was acquired. COMPARISON: [facility], CR, XR CHEST 1VW (PORTABLE), 07/11/2015, 10:34. [facility], CR, XR CHEST 1VW (PORTABLE), 11/03/2016, 4:29. [facility], CT, CT ANGIO CHEST PE , 11/03/2016, 5:24. FINDINGS: Surgical changes and devices: Stable positioning of dual chamber left cardiac pacer. Lungs and pleura: No pleural effusions or pneumothorax. Lungs are clear, aside from medial bibasila r airspace opacities.. Mediastinum: Mediastinal contours appear normal. Heart size is normal. Bones and chest wall: No suspicious bony lesions. Overlying soft tissues appear unremarkable. IMPRESSION: Bibasilar atelectasis versus aspiration or pneumonia. Correlate clinically. Dictated by: Sami KAY Interpreted: Carlos Beyer MD on 11/05/2016 at 14:12 Transcribed by: GA on 11/05/2016 at 14:13 Approved by: Rico Beyer M.D. on 11/05/2016 at 14:18
[2016-11-05] MEDS: predniSONE 20 mg Tablet PO SCH (14:21)
[2016-11-05] MEDS: Albuterol-Ipratropium 3 mL Inhalation Solution NEB SCH ×2 (15:14→20:24)
[2016-11-05] MEDS ORDERED: Warfarin 5 MG, Warfarin 2.5 MG PO ONE ×2 (17:00)
[2016-11-06] VITALS (15 sets, daily range): BP systolic 92–124; BP diastolic 54–74; PULSE 68–104; RESP 18–22; O2SAT 88–97
[2016-11-06] MEDS: Albuterol-Ipratropium 3 mL Inhalation Solution NEB SCH ×6 (00:52→21:06)
--- NOTE | 2016-11-06 03:17 | ABG ---
DateTimeAnalyzed 03:12:00 -_ pH ____7.261 - 7.350 7.450 pCO2 ___63.8__ -mmHg 35.0 45.0 pO2 ___60.8__ -mmHg 69.0 116 HCO3- ___27.8__ -mmol/L 22.0 26.0 ABE ____0.7__ -mmol/L -2.0 2.0 tHb ____8.3__ -g/dL O2Hb ___87.8__ -% COHb ____1.2__ -% MetHb ____1.1__ -% sO2 ___89.9__ -% 25.0 FIO2 ___32.0__ -% Drawn By blf - Date/Time Notified____ 03:16:00 -_ Spontaneous_RR ___18.0__ -b/min Liter_Flow ____3.0__ -L/min Oxygen Device 1 _OXY MASK - Notified By blf - Notified Whom ___DR. FUIMAONO - B 767 -mmHg tO2 ___10.3__ -Vol% OrderingPhysicianInitials mf - Benji test _Positive -
[2016-11-06 04:31] LABS: Mean Corpuscular Volume 85.7 fL (81-100)
[2016-11-06 04:42] LABS: INR 1.21 ratio
--- NOTE | 2016-11-06 06:43 | NUR ---
decreased LOC electrical maintenance technician informed me that patient had 26 of vtach. Patient was difficult to arouse this morning. would open eyes and drift back to sleep. Vitals stable. 5L via oxymask. Charge nurse in to assess patient. MD notified. new order for Magnesium and stat ABG. MD notified of ABG and magnesium no new orders at this time. 02 3L via oxy mask 02 maintained between 88-92%. at 0600 patient more alert giving thumbs up helping turn from side to side for bed change.
[2016-11-06] MEDS: predniSONE 20 mg Tablet PO SCH (09:23)
--- NOTE | 2016-11-06 12:13 | PCM.PNMED ---
Subjective Date of Service Nov 06, 2016 Subjective Patient was examined at bedside today. Patient denies any chest pain, nausea, vomiting, diarrhea. Patient still reports shortness of breath and requires oxygen. The patient's infection seems to be improving. Exam Vital Signs Vital Sign - Last Date Time Temp Pulse Resp B/P Pulse Ox O2 Delivery O2 Flow Rate FiO2 11/06/16 09:55 36.3 91 20 124/74 91 OxyMask 3.00 Intake and Output 11/05/16 11/05/16 11/06/16 Cumulative From/Thru 15:00 23:00 07:00 11/03/16 04:03 - 11/06/16 06:42 Intake Total 0 ml 756 ml 50 ml 6391 ml Output Total 350 ml Balance 0 ml 756 ml 50 ml 6041 ml Intake Oral 0 ml 756 ml 50 ml 2346 ml IV Total 4045 ml Output Urine Total 350 ml # Voids 4 4 2 22 # Bowel Movements 2 3 1 7 Exam Physical Exam: GEN: Patient was awake, alert, responding appropriately to questions HEENT: PERRLA, EOMI, Neck soft supple, trachea midline, nomocephalic/atraumatic CV: +S1/S2, RRR, no murmurs auscultated Respiratory: Positive wheezing and rhonchi GI: +bowel sounds x4, soft, compressible, non TTP EXT: no c/c/e Neuro: CN II-XII grossly intact Psych: mood and affect were appropriate IVs and Medications Medications Reviewed: Medications were reviewed in detail Medications Current Medications Pharmacy Consult 1 ea DAILY@17 XX; Start 11/04/16 at 17:00 Oseltamivir Phosphate 75 mg BID PO Last administered on 11/06/16 09:23; Admin Dose 75 MG; Start 11/04/16 at 20:30; Stop 11/09/16 at 08:31 Acetaminophen 650 mg Q6H PRN PO Last administered on 11/04/16 23:06; Admin Dose 650 MG; Start 11/04/16 at 22:50 Albuterol/ Ipratropium 3 ml Q4 NEB; Start 11/05/16 at 12:30; Stop 11/05/16 at 12 :30; Status DC Albuterol/ Ipratropium 3 ml Q4H NEB Last administered on 11/06/16 09:02; Admin Dose 3 ML; Start 11/05/16 at 15:30 Prednisone 40 mg DAILY PO Last administered on 11/06/16 09:23; Admin Dose 40 MG ; Start 11/05/16 at 13:25; Stop 11/09/16 at 08:31 Lisinopril 2.5 mg DAILY PO Last administered on 11/06/16 09:23; Admin Dose 2.5 MG; Start 11/05/16 at 13:40 Lab and Diagnostics Result Diagram: 11/06/16 0416 11/06/16 0416 Assessment & Plan 80-year-old male presents with shortness of breath and acute respiratory distress secondary to influenza Leukocytosis in the setting of Influenza A positive causing acute respiratory failure -Leukocytosis resolved -Maintain oxygen saturations at 92% or above -Continue supportive care -Continue prednisone 40 mg daily -Chest x-ray ordered yesterday most likely consistent with atelectasis -Continue encouragement to use Incentive spirometry -Blood cultures negative 2 -We days will continue to monitor Dehydration (resolving) -Discontinue IV fluids -We will continue to monitor Anemia -Hemoglobin and hematocrit stable -We will continue to monitor ?UTI -Urine culture negative Hypertension -Controlled blood pressure was 124/74 -Continue lisinopril 2.5 mg daily Hyperlipidemia -Continue simvastatin daily CAD -Patient is currently paced. DVT prophylaxis continue home warfarin per pharmacy to manage Diet: Regular Code Status: DNR/DNI Disposition: Patient still has high demand oxygen needs. The patient's leukocytosis is now improved. Physical therapy has been consulted to start working with the patient and will continue to try and decrease the patient's oxygen needs. With the addition of steroids and Mucinex to help treat the patient's congestion hopefully this will help to decrease the patient's oxygen needs. Patient's acute respiratory failure is most likely secondary to influenza. Pneumonia still may be possible but at this time I would lean more towards atelectasis than pneumonia at this time. VTE Mechanical Devices: Intermittant Pneumatic CD Resuscitation Status: DNR/DNI:Do Not Resuscitate/Intubate Time spent Greater than 35 minutes Michelle Medina DO Nov 06, 2016 12:13
--- NOTE | 2016-11-06 13:16 | PCM.PHAPRO ---
Progress Shortness of breath WARFARIN MANAGEMENT PER PHARMACY RR rtm DFF DFF Nov 04-Nov 05-Oct 06-Nov 1.33 1.17 1.08 1.21 - -0.16 -0.09 0.13 4 MG DAILY 3 7.5 6 INR upternding but still sub-therapeutic as anticipated with no doses taken 11/01 -. Will give warfarin 6 mg today to combat the missed doses. Will consider dose change if trend drastically changes (increases). Pharmacy will continue to monitor. Dane Khan, PharmD Dane Khan Nov 06, 2016 13:16
[2016-11-06] MEDS: guaiFENesin 600 mg ER12 Tablet PO SCH ×2 (13:26→21:11)
--- NOTE | 2016-11-06 14:23 | NUR ---
MO signed with Gayla via phone. JOSE JUAN Beyer
--- NOTE | 2016-11-06 14:24 | NUR ---
Social Work-continued d/c planning: Data:EMR Reviewed. Pt is on day 3 of hospitalization for Pneumonia per H&P. Pt is not medically stable, anticipate multiple more days of hospitalization. Pt remains on 3 Liters of O2, which is not pt's baseline. MD to order PT evaluation to help determine pt's mobility. SW called and provided update. SW to follow up after PT evaluation to determine discharge needs. SW will continue to follow. Assessment:Pt who is independent at baseline. Plan:Pt to discharge home with and HH vs SNF. PT to evaluation for needs. SW will continue to follow. JOSE JUAN Beyer
--- NOTE | 2016-11-06 17:47 | NUR ---
Nausea Vomiting/02 sats.:: Patient has not had nausea and vomiting today . He has eaten all of his meals with no issues. Patients 02 sats have been in the high 80s . He has 3 liters of 03 on . He has alert and oriented and able to converse with nursing staff appropriately.
--- NOTE | 2016-11-06 20:01 | NUR ---
O2 Sat/SCD's O2 monitor indicated O2 sat 82%. Noted pt was not wearing NC. Replaced NC and continued pt at 3L O2. O2 sat increased to 88%. Reminded pt to keep NC in place to assist with oxygenation. Pt also refused SCD's, indicating he is doing ankle/foot rotations on his own. Bed locked and low. Call light within reach.
[2016-11-07] VITALS (13 sets, daily range): BP systolic 119–137; BP diastolic 58–78; PULSE 5–100; RESP 18–28; O2SAT 89–96
[2016-11-07] MEDS: Albuterol-Ipratropium 3 mL Inhalation Solution NEB SCH ×6 (00:43→21:27)
--- NOTE | 2016-11-07 00:44 | NUR ---
02 sat While sleeping, the patient O2 continued to desat into low to mid 80's. Placed patient on Oxymask and continued at 3LPM. Patient O2 sat increased to 88%. Discussed leaving Oxymask in place for the rest of the night with patient, patient agreed. Bed low and locked, call light within reach. Patient denies any further needs at this time.
--- NOTE | 2016-11-07 01:48 | PCM.PNMED ---
Subjective Date of Service Nov 07, 2016 Subjective Cross cover note. Nurse called reporting patient having tachycardia. Plan: Trial a dose of Coreg 3.125 mg PO may continue if effective Exam Vital Signs Vital Sign - Last Date Time Temp Pulse Resp B/P Pulse Ox O2 Delivery O2 Flow Rate FiO2 11/07/16 01:33 36.8 5 24 120/67 89 OxyMask 3.50 Intake and Output 11/06/16 11/06/16 11/07/16 Cumulative From/Thru 15:00 23:00 07:00 11/03/16 04:03 - 11/06/16 19:51 Intake Total 2414 ml 8805 ml Output Total 350 ml Balance 2414 ml 8455 ml Intake Oral 2414 ml 4760 ml IV Total 4045 ml Output Urine Total 350 ml # Voids 4 26 # Bowel Movements 0 7 Lab and Diagnostics Result Diagram: 11/06/16 0416 11/06/16 0416 Assessment & Plan 80-year-old male presents with shortness of breath and acute respiratory distress secondary to influenza Leukocytosis in the setting of Influenza A positive causing acute respiratory failure -Leukocytosis resolved -Maintain oxygen saturations at 92% or above -Continue supportive care -Continue prednisone 40 mg daily -Chest x-ray ordered yesterday most likely consistent with atelectasis -Continue encouragement to use Incentive spirometry -Blood cultures negative 2 -We days will continue to monitor Dehydration (resolving) -Discontinue IV fluids -We will continue to monitor Anemia -Hemoglobin and hematocrit stable -We will continue to monitor ?UTI -Urine culture negative Hypertension -Controlled blood pressure was 124/74 -Continue lisinopril 2.5 mg daily Hyperlipidemia -Continue simvastatin daily CAD -Patient is currently paced. DVT prophylaxis continue home warfarin per pharmacy to manage Diet: Regular Code Status: DNR/DNI Disposition: Patient still has high demand oxygen needs. The patient's leukocytosis is now improved. Physical therapy has been consulted to start working with the patient and will continue to try and decrease the patient's oxygen needs. With the addition of steroids and Mucinex to help treat the patient's congestion hopefully this will help to decrease the patient's oxygen needs. Patient's acute respiratory failure is most likely secondary to influenza. Pneumonia still may be possible but at this time I would lean more towards atelectasis than pneumonia at this time. VTE Mechanical Devices: Intermittant Pneumatic CD Resuscitation Status: DNR/DNI:Do Not Resuscitate/Intubate Kwadwo Zavala MD Nov 07, 2016 01:48
--- NOTE | 2016-11-07 05:53 | NUR ---
Per tele monitor, pt had 20+ runs of SVT w/ HR in the 140's since 2300. Pt denied chest px/pressure and remained asymptomatic. Dr. Dailey was contacted and ordered a one time dose of Corveg for rate control. Addendum: 11/07/16 at 0602 by SITA MCCAIN Corveg given at 0200. Per tele monitor, only 2 episodes of SVT w/ HR >120's. Pt remains asymptomatic. Will continue to monitor. Call light in reach, bed low and locked.
[2016-11-07 06:40] LABS: INR 1.69 ratio
[2016-11-07 06:45] LABS: Mean Corpuscular Hemoglobin 22.4 pg (27.0-35.0); Mean Corpuscular Volume 83.7 fL (81-100)
[2016-11-07] MEDS: predniSONE 20 mg Tablet PO SCH (08:01)
[2016-11-07] MEDS: guaiFENesin 600 mg ER12 Tablet PO SCH ×2 (08:02→22:36)
--- NOTE | 2016-11-07 13:33 | PCM.PHAPRO ---
Progress Shortness of breath WARFARIN MANAGEMENT PER PHARMACY RR rtm DFF DFF AK Nov 04-Nov 05-Oct 06-Nov 07-Nov 1.33 1.17 1.08 1.21 1.69 - -0.16 -0.09 0.13 0.48 4 MG DAILY 3 7.5 6 5 INR upternding but still sub-therapeutic as anticipated with no doses taken 11/01 -. Will give warfarin 5 mg today to combat the missed doses. Will consider dose change if trend drastically changes (increases). Pharmacy will continue to monitor. Dane Khan, PharmD Penelope Ferreira PharmD Nov 07, 2016 13:33
--- NOTE | 2016-11-07 16:02 | PCM.PNMED ---
Subjective Date of Service Nov 07, 2016 Subjective Patient was examined at bedside today. Patient denies any chest pain, nausea, vomiting, diarrhea. Patient states that he is feeling better however he is still short of breath. Patient states that he is able to sit up in a chair longer without becoming short of breath. Exam Vital Signs Vital Sign - Last Date Time Temp Pulse Resp B/P Pulse Ox O2 Delivery O2 Flow Rate FiO2 11/07/16 14:34 91 19 132/71 92 OxyMask 3.50 11/07/16 09:39 36.7 Intake and Output 11/06/16 11/06/16 11/07/16 Cumulative From/Thru 15:00 23:00 07:00 11/03/16 04:03 - 11/06/16 19:51 Intake Total 2414 ml 8805 ml Output Total 350 ml Balance 2414 ml 8455 ml Intake Oral 2414 ml 4760 ml IV Total 4045 ml Output Urine Total 350 ml # Voids 4 26 # Bowel Movements 0 7 Exam Physical Exam: GEN: Patient was awake, alert, responding appropriately to questions HEENT: PERRLA, EOMI, Neck soft supple, trachea midline, nomocephalic/atraumatic CV: +S1/S2, RRR, no murmurs auscultated Respiratory: Coarse breath sounds GI: +bowel sounds x4, soft, compressible, non TTP EXT: no c/c/e Neuro: CN II-XII grossly intact Psych: mood and affect were appropriate IVs and Medications Medications Reviewed: Medications were reviewed in detail Medications Current Medications Guaifenesin 1,200 mg Q12 PO Last administered on 11/07/16t 08:02; Admin Dose 1, 200 MG; Start 11/06/16 at 12:29 Lab and Diagnostics Result Diagram: 11/07/16 0549 11/06/16 0416 Assessment & Plan 80-year-old male presents with shortness of breath and acute respiratory distress secondary to influenza Leukocytosis in the setting of Influenza A positive causing acute respiratory failure -Leukocytosis resolved -Maintain oxygen saturations at 92% or above -Continue supportive care -Continue prednisone 40 mg daily -Chest x-ray ordered yesterday most likely consistent with atelectasis -Continue encouragement to use Incentive spirometry -Blood cultures negative 2 -We days will continue to monitor Dehydration (resolving) -Discontinue IV fluids -We will continue to monitor Anemia -Hemoglobin and hematocrit stable -We will continue to monitor ?UTI -Urine culture negative Hypertension -Controlled blood pressure was 124/74 -Continue lisinopril 2.5 mg daily Hyperlipidemia -Continue simvastatin daily CAD -Patient is currently paced. DVT prophylaxis continue home warfarin per pharmacy to manage Diet: Regular Code Status: DNR/DNI Disposition: Patient still has high demand oxygen needs. The patient's leukocytosis is now improved. The patient seems to be responding well since the addition of Mucinex and steroids. Physical therapy was instituted patient today will appreciate their recommendations. Respiratory therapy will evaluate the patient as he may need home oxygen. We will continue to monitor the patient and decrease his oxygen needs as the patient becomes more medically stable. VTE Mechanical Devices: Intermittant Pneumatic CD Resuscitation Status: DNR/DNI:Do Not Resuscitate/Intubate Time spent Greater than 35 minutes Michelle Medina DO Nov 07, 2016 16:02
--- NOTE | 2016-11-07 17:46 | NUR ---
Respiratory/Nausea: Patient continues to be on droplet and contact precautions for the Influenza A Virus. . He reports no nausea or vomiting or stomach issues. He has been able to eat all of his meals without issues. His 02 sat is in high 80s - 91 on 3 liters of 02. Patient continues to have shortness of breath with activity and he has a loose non productive cough.
[2016-11-08] VITALS (15 sets, daily range): BP systolic 115–148; BP diastolic 58–87; PULSE 70–122; RESP 18–24; O2SAT 90–96
[2016-11-08] MEDS: Albuterol-Ipratropium 3 mL Inhalation Solution NEB SCH ×5 (01:04→20:35)
--- NOTE | 2016-11-08 06:34 | NUR ---
Shift Note: Patient on 3L oxy mask, sats in high 80's-low 90's. Tele AV paced in the 70's, patient has a pacemaker. Incontinent of bowel and bladder, 1PA to stand for urinal. Patient on contact/droplet precautions for Influenza A, treated with PO Tamiflu. Patient very diaphoretic and cool, afebrile, blood glucose 129. Patient very hard of hearing, successful communication with notepad at bedside.
[2016-11-08 07:04] LABS: BASOPHILS % (AUTO) 0.2 % (0-3); EOSINOPHILS % (AUTO) 0.2 % (0-5); MONOCYTES % (AUTO) 8.3 % (4-12); Mean Corpuscular Hemoglobin 21.9 pg (27.0-35.0); Mean Corpuscular Volume 83.1 fL (81-100); NEUTROPHILS % (AUTO) 69.4 % (40-74); Platelet Count 194 bil/L (150-400)
[2016-11-08 07:34] LABS: INR 1.78 ratio
--- NOTE | 2016-11-08 09:59 | NUR ---
MO: Patient unable to sign for self, asked ORGANIC SECTION TECHNICAL LEAD to follow up with via phone.
[2016-11-08] MEDS: guaiFENesin 600 mg ER12 Tablet PO SCH ×2 (10:01→21:27)
[2016-11-08] MEDS: predniSONE 20 mg Tablet PO SCH (10:02)
--- NOTE | 2016-11-08 15:32 | PCM.PNMED ---
Subjective Date of Service Nov 08, 2016 Subjective Patient was seen and examined at bedside today. The patient still complains of shortness of breath and weakness. Nursing stated that the patient still has high oxygen needs but are trying to wean him at this time. Exam Vital Signs Vital Sign - Last Date Time Temp Pulse Resp B/P Pulse Ox O2 Delivery O2 Flow Rate FiO2 11/08/16 13:31 36.6 102 20 145/70 90 Nasal Cannula 2.50 Intake and Output 11/07/16 11/07/16 11/08/16 Cumulative From/Thru 15:00 23:00 07:00 11/03/16 04:03 - 11/08/16 06:29 Intake Total 340 ml 600 ml 9745 ml Output Total 350 ml Balance 340 ml 600 ml 9395 ml Intake Oral 340 ml 600 ml 5700 ml IV Total 4045 ml Output Urine Total 350 ml # Voids 2 6 34 # Bowel Movements 1 2 10 Exam Physical Exam: GEN: Patient was awake, alert, responding appropriately to questions HEENT: PERRLA, EOMI, Neck soft supple, trachea midline, nomocephalic/atraumatic CV: +S1/S2, RRR, no murmurs auscultated Respiratory: Coarse breath sounds, positive wheezing GI: +bowel sounds x4, soft, compressible, non TTP EXT: no c/c/e Neuro: CN II-XII grossly intact Psych: mood and affect were appropriate IVs and Medications Medications Reviewed: Medications were reviewed in detail Lab and Diagnostics Result Diagram: 11/08/1640 11/08/16 0640 Assessment & Plan 80-year-old male presents with shortness of breath and acute respiratory distress secondary to influenza Leukocytosis in the setting of Influenza A positive causing acute respiratory failure -Leukocytosis resolved -Maintain oxygen saturations at 92% or above -Continue supportive care -Continue prednisone 40 mg daily -Chest x-ray ordered yesterday most likely consistent with atelectasis -Continue encouragement to use Incentive spirometry -Blood cultures negative 2 -We days will continue to monitor Dehydration (resolving) -Discontinue IV fluids -We will continue to monitor Anemia -Hemoglobin and hematocrit stable -We will continue to monitor ?UTI -Urine culture negative Hypertension -Controlled blood pressure was 124/74 -Continue lisinopril 2.5 mg daily Hyperlipidemia -Continue simvastatin daily CAD -Patient is currently paced. DVT prophylaxis continue home warfarin per pharmacy to manage Diet: Regular Code Status: DNR/DNI Disposition: Patient still has high demand oxygen needs. However he is currently being weaned down off of the oxygen. The patient does still remained weak status post this influenza infection. Physical therapy is continuing to monitor the patient. The patient may be a candidate for half-way facility. But at this time we need to get the patient's oxygenation status under control. Once the patient's oxygen needs are under control the patient could potentially be discharged to a half-way facility. We will continue to have physical therapy work with the patient and have nursing wean the patient oxygen down. VTE Mechanical Devices: Intermittant Pneumatic CD Resuscitation Status: DNR/DNI:Do Not Resuscitate/Intubate Michelle Medina DO Nov 08, 2016 15:32
--- NOTE | 2016-11-08 15:56 | NUR ---
took over care at 3pm
--- NOTE | 2016-11-08 17:48 | NUR ---
Activity: Patient has been up in his chair x2 today. His condition continues to improve. His 02 sat is ranging from88% to 91% he is on 2.5-3 liters.
[2016-11-09] VITALS (15 sets, daily range): BP systolic 99–154; BP diastolic 64–80; PULSE 63–109; RESP 18–20; O2SAT 92–97
[2016-11-09] MEDS: Albuterol-Ipratropium 3 mL Inhalation Solution NEB SCH ×6 (00:18→20:50)
--- NOTE | 2016-11-09 03:25 | NUR ---
Tele/O2 Per senior telecommunications specialist, patient V paced and sometimes AV paced with PVC's, HR 80. He had 8 beats of V-tach around 2100. Tele informed us his pacemaker fails to sense sometimes. Patient was on 3L oxy mask with sat's in mid-90's. Lowered to 2L oxy mask and sat's remain at mid-90's. Continue care, discussion of future discharge to SNF.
[2016-11-09 05:45] LABS: Mean Corpuscular Hemoglobin 22.1 pg (27.0-35.0); Mean Corpuscular Volume 81.9 fL (81-100)
[2016-11-09 06:03] LABS: INR 2.13 ratio
--- NOTE | 2016-11-09 08:00 | PCM.PHAPRO ---
Progress Date of Service: Nov 09, 2016 Warfarin dosing A/ INR is now therapeutic at 2.13. P/ Resume home dose of warfarin today with 4mg and D/C enoxaparin bridging. Irvin Nolasco Nov 09, 2016 08:00
[2016-11-09] MEDS: predniSONE 20 mg Tablet PO SCH (09:29)
[2016-11-09] MEDS: guaiFENesin 600 mg ER12 Tablet PO SCH ×2 (09:29→22:19)
[2016-11-09] MEDS: levoFLOXacin 750 mg Tablet PO SCH (12:11)
--- NOTE | 2016-11-09 12:16 | NUR ---
VTach pt had 16 beats of Vtach and de-saturated to 79% while working with PT. notified. No chest pain or other s/s Addendum: 11/09/16 at 1240 by VINAYAK ISAACS RN Patient had 27 beats of Vtach not 16 , 4 seconds in Vpaced SR, and then 8 more beats of VTach. Patient was working with PT at the time and was asymptomatic. notified and ordered STAT ekg. continue to monitor
--- NOTE | 2016-11-09 14:10 | PCM.PNMED ---
Subjective Date of Service Nov 09, 2016 Subjective Patient was examined at bedside today. Patient denies any chest pain, nausea, vomiting, diarrhea. Patient still complains of shortness of breath and nursing stated patient still has high oxygen needs. Exam Vital Signs Vital Sign - Last Date Time Temp Pulse Resp B/P Pulse Ox O2 Delivery O2 Flow Rate FiO2 11/09/16 13:16 94 20 95 Nasal Cannula 2.00 11/09/16 09:58 36.4 136/77 Intake and Output 11/08/16 11/08/16 11/09/16 Cumulative From/Thru 15:00 23:00 07:00 11/03/16 04:03 - 11/09/16 06:44 Intake Total 300 ml 920 ml 43899 ml Output Total 540 ml 890 ml Balance -240 ml 920 ml 16665 ml Intake Oral 300 ml 920 ml 6920 ml IV Total 4045 ml Output Urine Total 540 ml 890 ml # Voids 3 4 41 # Bowel Movements 2 12 Exam Physical Exam: GEN: Patient was awake, alert, responding appropriately to questions HEENT: PERRLA, EOMI, Neck soft supple, trachea midline, nomocephalic/atraumatic CV: +S1/S2, RRR, no murmurs auscultated Respiratory: Coarse breath sounds, positive wheezing, rhonchi GI: +bowel sounds x4, soft, compressible, non TTP EXT: no c/c/e Neuro: CN II-XII grossly intact Psych: mood and affect were appropriate IVs and Medications Medications Reviewed: Medications were reviewed in detail Medications Current Medications Levofloxacin 750 mg DAILYAC PO Last administered on 11/09/16t 12:11; Admin Dose 750 MG; Start 11/09/16 at 10:25 Lab and Diagnostics Result Diagram: 11/09/1651911/09/16519 Assessment & Plan 80-year-old male presents with shortness of breath and acute respiratory distress secondary to influenza Leukocytosis in the setting of Influenza A positive causing acute respiratory failure -Leukocytosis resolved -Maintain oxygen saturations at 92% or above -Continue supportive care -Continue prednisone 40 mg daily -Chest x-ray ordered yesterday most likely consistent with atelectasis -Continue encouragement to use Incentive spirometry -Blood cultures negative 2 -Respiratory therapy to evaluate for possible home O2 -We days will continue to monitor Pneumonia -Patient remains to have coarse breath sounds and rhonchi x-ray 2 days ago noted the patient to have atelectasis versus pneumonia. This may be pneumonia for this particular patient will start patient on Levaquin 750 daily and azithromycin 500 mg daily Dehydration (resolving) -Discontinue IV fluids -We will continue to monitor Anemia -Hemoglobin and hematocrit stable -We will continue to monitor ?UTI -Urine culture negative Hypertension -Controlled blood pressure was 124/74 -Continue lisinopril 2.5 mg daily Hyperlipidemia -Continue simvastatin daily CAD -Patient is currently paced. DVT prophylaxis continue home warfarin per pharmacy to manage Diet: Regular Code Status: DNR/DNI Disposition: Patient still has high demand oxygen needs. However he is currently being weaned down off of the oxygen. The patient seems to be stable at 1.5 L of oxygen while sitting however his oxygen demands admitted acutely increased to at least 3 L with movement. Patient is still considerably weak and physical therapy is working with the patient and has recommended a correction facility. We will now start treating the patient for pneumonia as this is a possibility that this is the underlying his influenza. The patient remains afebrile and white count has been normal. We will continue to have physical therapy work with the patient with the possibility of discharge home. Case management will contact the patient's as well as it seemed that the patient being discharged to a correction facility would be the best course of action for the patient however we will respect the patient's wishes if he desires to go home with home health. The patient may need to go home with oxygen and respiratory therapy will assess this. VTE Mechanical Devices: Intermittant Pneumatic CD Resuscitation Status: DNR/DNI:Do Not Resuscitate/Intubate Michelle Medina DO Nov 09, 2016 14:10
--- NOTE | 2016-11-09 16:04 | NUR ---
Social Work: Continued d/c planning Data: Pt is on day 6 of hospitalization. EMR reviewed, PT recommends SNF at this time. ADVISORY SERVICES ASSOCIATE met with pt regarding this recommendation, pt is very hard of hearing. Pt's spouse was in the room and states that their first choice is [facility] and second is [facility]. ADVISORY SERVICES ASSOCIATE referred pt to [facility] and [facility]. ADVISORY SERVICES ASSOCIATE will continue to follow. Assessment: Pt who is independent at baseline. Plan: Pt will likely d/c to SNF, [facility] (1st choice) and [facility] (2nd choice). ADVISORY SERVICES ASSOCIATE will continue to follow. JOSE JUAN Haider
--- NOTE | 2016-11-09 17:33 | NUR ---
Increased HR Pt's HR was sitting in the 150's-160's per electronic device monitor. with increased occurrences of V-tach. Pt is asymptomatic. Called MD on cell phone. Left message. Waiting on response back.
[2016-11-09] MEDS ORDERED: MeTOProlol 1 mg/mL 5 mL Inj IV ONE (18:45)
[2016-11-10] VITALS (13 sets, daily range): BP systolic 115–168; BP diastolic 61–87; PULSE 73–106; RESP 20–24; O2SAT 90–95
[2016-11-10] MEDS: Albuterol-Ipratropium 3 mL Inhalation Solution NEB SCH ×4 (00:05→21:04)
--- NOTE | 2016-11-10 06:30 | NUR ---
Tele/02/Discharge Patient AV paced, HR in 80's, runs of PVC's, Afib underlined. Pacemaker fails to sense sometimes. Patient given one time dose Lopressor 5mg IV push to help with rate control, had previous Vtach of 27 runs on day shift. Patient on 1.5L NC and sat's remained in low 90's. Anticipate discharge to SNF in next day or two or potentially home on . Continue to monitor tele and O2.
[2016-11-10 06:56] LABS: Mean Corpuscular Hemoglobin 21.9 pg (27.0-35.0); Mean Corpuscular Volume 81.1 fL (81-100)
[2016-11-10 07:25] LABS: INR 1.95 ratio
[2016-11-10] MEDS: guaiFENesin 600 mg ER12 Tablet PO SCH ×2 (09:24→20:43)
[2016-11-10] MEDS: levoFLOXacin 750 mg Tablet PO SCH (09:24)
--- NOTE | 2016-11-10 09:57 | PCM.PHAPRO ---
Progress Date of Service: Nov 10, 2016 Warfarin dosing A/ INR is slightly sub therapeutic at 1.95. P/ Giving 5mg of warfarin today and follow. Irvin Nolasco Nov 10, 2016 09:57
--- NOTE | 2016-11-10 14:00 | NUR ---
Social Work: Continued d/c planning Data: Pt is on day 7 of hospitalization. EMR reviewed, pt discussed in rounds. [facility] accept pt. [facility] likely [facility], but is getting back to BILLING REPRESENTATIVE later today. Pt's first choice is [facility]. BILLING REPRESENTATIVE will continue to follow. Assessment: Pt who is independent at baseline. Plan: Pt will d/c to SNF, [facility] has accepted and is pt's first choice, [facility] to get back to BILLING REPRESENTATIVE regarding acceptance. BILLING REPRESENTATIVE will continue to follow. JOSE JUAN Haider Addendum: 11/10/16 at 1431 by CARLY MYERS [facility] can also accept pt. JOSE JUAN Haider
--- NOTE | 2016-11-10 14:00 | NUR ---
MO signed Verbal consent to sign by pt's spouse over phone. JOSE JUAN Haider
--- NOTE | 2016-11-10 16:02 | PCM.PNMED ---
Subjective Date of Service Nov 10, 2016 Subjective denies any new issues/complaints Exam Vital Signs Vital Sign - Last Date Time Temp Pulse Resp B/P Pulse Ox O2 Delivery O2 Flow Rate FiO2 11/10/16 14:30 36.4 77 20 115/61 94 Nasal Cannula 1.00 Intake and Output 11/09/16 11/09/16 11/10/16 Cumulative From/Thru 15:00 23:00 07:00 11/03/16 04:03 - 11/10/16 06:17 Intake Total 590 ml 1073 ml 84609 ml Output Total 500 ml 350 ml 1740 ml Balance 90 ml 723 ml 95419 ml Intake Oral 590 ml 1073 ml 8583 ml IV Total 4045 ml Output Urine Total 500 ml 350 ml 1740 ml # Voids 2 2 45 # Bowel Movements 1 13 General: Alert, Cooperative, No Acute Distress, Other (extremely hard of hearing) Eyes: PERRLA, EOMI, Scleral Anicteric Mouth: Mucous Membr Moist/Barnhart Neck: Supple Chest & Lungs: Chest Wall Normal, Clear to auscultation & percussion Cardiovascular: Regular Rate/Rhythm Abdomen: Non-tender, Non-distended, Normoactive bowel tones, Soft Extremities: No cyanosis/clubbing/edma bilat Neurological: Grossly Neurologically Intact, Normal Speech IVs and Medications Medications Reviewed: Medications were reviewed in detail Lab and Diagnostics Result Diagram: 11/10/1664411/10/16644 Assessment & Plan 80-year-old male with history of Hypertension, BPH, CAD, 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 poa. - Leukocytosis resolved - Maintain oxygen saturations at 92% or above - Continue supportive care - prednisone stopped on 11/09 - treated with Tamiflu from 11/04 - 11/09 # Suspected acute Pneumonia on admission - bacterial infection seems clinically unlikely at this time - stop Abx at this time and f/u # Acute Dehydration. poa. - resolved # Anemia. chronic. - Hemoglobin and hematocrit stable - We will continue to monitor # Hypertension. chronic. stable - Continue lisinopril 2.5 mg daily # Hyperlipidemia - Continue simvastatin daily # History of Afib and tachy-chloe syndrome post pacemaker - appreciate cardiology interrogating pacer today - c/w Coumadin - f/u daily INR Dispo: 1-2 days VTE Mechanical Devices: Intermittant Pneumatic CD Resuscitation Status: DNR/DNI:Do Not Resuscitate/Intubate Time spent 35 min Al Myers Nov 10, 2016 16:02
--- NOTE | 2016-11-10 19:35 | CONS ---
[address] [address] CONSULTATION REPORT PATIENT: AMADOU HUERTA : 1935 MR#: [id number] ADMIT: 11/03/2016 JOB ID: [id number] DATE OF SERVICE: 11/10/2016 CHIEF COMPLAINT: Shortness of breath. HISTORY OF PRESENT ILLNESS: The patient was admitted November 03 with shortness of breath. He denies any chest pain, fever or chills. He reports sick contacts. He was found to have influenza A. Cardiology is consulted to assist with management because he has had irregular wide complex tachycardia on telemetry and I am asked to interrogate his device. PAST MEDICAL HISTORY: 1. Paroxysmal AFib and sick sinus syndrome status post dual-chamber [employer] permanent pacemaker implanted by Dr. Perez in 2014. 2. Hypertension. 3. Hyperlipidemia. 4. Melanoma on hands. 5. Hearing loss. REVIEW OF SYSTEMS: Unobtainable because the patient is so hard of hearing he cannot understand he questions even when yell very loudly. SOCIAL HISTORY: He is a retired ironworker apprentice. He used to drink heavily but quit in 1990. He is a former smoker and quit in 1990. ALLERGIES: No known drug allergies. CURRENT MEDICATIONS IN THE HOSPITAL: 1. Sertraline 50 mg daily. 2. Lisinopril 2.5 mg daily. 3. Lipitor 10 mg daily. 4. Albuterol inhaler. 5. Cough syrup. PHYSICAL EXAMINATION: A very pleasant man, hard of hearing and difficult to have a conversation with him. Up to go back before in my right after I talk about his medications the review of systems unobtainable because patient is so hard of hearing. He cannot understand the questions is 11 LDL very lousy. Vital signs: Temperature 36.6, blood pressure 115/61, pulse 73 up to 106 beats per minute. He is satting 92% to 95% on 2 liters nasal cannula. Well-nourished man, no apparent distress. Eyes: No scleral icterus. Heart: Normal S1, S2. No murmurs. Lungs are clear. Abdomen is soft with positive bowel sounds. No hepatosplenomegaly. Extremities are warm. No clubbing, cyanosis, edema. Skin: No rashes or lesions. LABORATORIES: Reviewed. ASSESSMENT AND PLAN: This is an 80-year-old man admitted with shortness of breath and hypoxia in the setting of influenza A virus. He initially required OxyMask but subsequently has done well with nasal cannula. He presented with leukocytosis and now that is resolved. He presented with left chest and likewise now that is resolved. His troponin T was negative x1. His transaminases were mildly elevated. AST 67, ALT 54. His INR was most recently 2. PLAN: 1. Paroxysmal AFib. Agree with Coumadin. He is not currently on metoprolol and I think if his blood pressure allows, he would really benefit from that medication for rate control when he had paroxysmal atrial fibrillation, so I will take the liberty of starting it. 2. In terms of device management, I will check his device and dictate a note separately. 3. Stroke prevention. Agree with warfarin dosed by pharmacist. 4. Elevated liver function tests. His liver function tests are improving and AST peaks up to 56 on hospital day one, and has been steadily coming down. It could be due to toxicity of influenza virus. It is very difficult to understand the cause. It could be due to hepatic congestion though that seems somewhat less likely. It seems to be improving even though she has been continued on a statin drug. So, there is no point to holding it and I think it is okay to go ahead and continue it. 5. Hypertension: His blood pressure has been intermittently uncontrolled, and I agree with starting him on SUHAIL inhibitor. Thank you very much for the opportunity to evaluate him.
--- NOTE | 2016-11-10 20:15 | PROCED ---
[address] [address] PROCEDURE NOTE PATIENT: AMADOU HUERTA : 1935 MR#: [id number] ADMIT: 11/03/2016 JOB ID: [id number] DATE OF SERVICE: 11/10/2016 POSTOPERATIVE DIAGNOSIS(ES): PREOPERATIVE DIAGNOSIS(ES): SURGEON: Michelle Duckworth MD REASON FOR INTERROGATION: The patient had rapid ventricular response noted on his telemetry strip November 09, 2016 and Cardiology was consulted to assist with management. Briefly, this is a [employer] device implanted by Dr. Perez in 2014. Data longevity 7.8 years. Lead parameters are normal. The patient is in DDDR mode with lower rate 70 beats per minute, upper tracking rate of 125 beats per minute and his capture threshold has not been checked since January. At that time it was good. He has been atrially paced 32% of the time, ventricularly paced 94% of the time. Counters were last cleared nine months ago. He had 5743 mode switch episodes. Most episodes are less than a minute long and the heart rate during the episode tends to run high between 140 up to 160 beats per minute, sometimes even faster than 160 beats per minute. Histogram representing his heart rate during mode switches is skewed and mostly the rate is 140-160 beats per minute during those episodes. The atrial fibrillation burden overall though is less than 1% of the time and appears to be steady based on the graph called AFib burden as a function of time. There are 8 EGMs available for review and it appears that he has significant and frequent episodes of AFib since his hospitalization. There was an atrial flutter with rapid ventricular response which occurred November 09 at 12 p.m. It lasted, according to the computer, about 8 seconds. The cycle lengths were 300 msec and the rate response was 1:1. He had a similar episode of atrial tachycardia November 10 at 12 p.m. and it lasted 26 seconds. This was atrial tachycardia with a cycle length of about 370 msec. This episode lasted 26 seconds. He had multiple other similar episodes so far today. At this moment in time, he is A sensed, V paced. The AV delay was programmed kind of short sensed AV delay 160 paced, AV delay is 180 msec. He has good ventricular escape so I think there is not much reason for him to be V paced si much. His capture threshold on this lead is 0.75 V at 0.4 msec. I prolonged his AV delay up to 225 msec, and he is basically A sensed, V sensed at this time. IMPRESSION: The patient had no ventricular tachycardia. His main issue has been basically atrial tachycardia and atrial flutter, and I think he would really benefit from beta zbigniew. Thank you very much for the opportunity to evaluate him.
[2016-11-11] MEDS: Albuterol-Ipratropium 3 mL Inhalation Solution NEB SCH ×4 (00:57→11:31)
[2016-11-11 02:04] VITALS: BP 149/79; PULSE 76; RESP 22; O2SAT 95
[2016-11-11 05:09] VITALS: BP 134/76; PULSE 79; RESP 22; O2SAT 94
--- NOTE | 2016-11-11 05:27 | NUR ---
NOC activity Pt is very [place]. Denies chest pain, sob, n/v and abd discomfort. Breathing Tx administered PRN by RT. HS meds administered as scheduled, VSS, Has been afebrile overnight.
[2016-11-11 07:24] LABS: INR 1.95 ratio
[2016-11-11 07:28] VITALS: PULSE 83; O2SAT 93
[2016-11-11] MEDS ORDERED: MeTOProlol XL 25 mg ER24 Tablet PO SCH (08:30)
[2016-11-11] MEDS: guaiFENesin 600 mg ER12 Tablet PO SCH (08:32)
[2016-11-11] MEDS ORDERED: LISI-571 PO (10:05)
[2016-11-11] MEDS ORDERED: METO25TA99 PO (10:05)
--- NOTE | 2016-11-11 10:48 | PCM.DIMED ---
Discharge Instructions Date of Service Nov 11, 2016 Dates of Hospitalization Nov 03, 2016 at 06:12 Discharge Diagnosis Discharge Diagnosis # Acute Influenza A respiratory infection. present on admission. Improved - Leukocytosis resolved - treated with Tamiflu from 11/04 - 11/09 # Suspected acute Pneumonia on admission - bacterial infection seems clinically unlikely at this time # Acute Dehydration. present on admission. Resolved # Anemia. chronic. stable # Hypertension. chronic. 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 Medication Instructions Goal INR is 2-3 Diet Low fat, Low Sodium, Heart Healthy Activity Other (as tolerarted and per physical therapy) Patient Instructions Recheck INR in 2-3 days and adjust Coumadin dose as needed with goal INR 2-3 Follow-up plan 1. Followup with primary care provider in 3-7 days Follow-up Provider: Geovanny Shah Masoud Nov 11, 2016 10:48
--- NOTE | 2016-11-11 11:28 | NUR ---
Social Work-discharge: Data:EMR Reviewed. Pt is on day 8 of hospitalization for pneumonia per H&P. Pt is medically stable for discharge at this time. PT continues to recommend SNF placement. KARTHIKEYAN confirmed with [facility] [phone] at [facility] and they are able to take pt today. UR specialist arranged faxed discharge orders to [facility]. [facility] arranged transport for 1300 with O2. KARTHIKEYAN updated pt's Gayla via phone and she is agreeable to plan. RN,UC,pt/family, and [facility] all updated and agreeable to plan. Assessment:Pt who would benefit from SNF. Plan:Pt to discharge to [facility] SNF today via [facility] at 1300. RN,UC,pt/family, and [facility] all updated and agreeable to plan. JOSE JUAN Beyer
[2016-11-11 11:32] VITALS: PULSE 87; O2SAT 94
[2016-11-11 11:39] VITALS: PULSE 91
--- NOTE | 2016-11-11 14:16 | NUR ---
Discharge Patient departed unit via wheelchair, accompanied by cabulance water truck driver. Patient alert and oriented at time of discharge. Patient able to maintain O2 sats while awake, desats and requires up to 2 Ltr while asleep. Patient very, very hard of hearing and using a tablet for nursing to write down communication for him to read. Patient continues to become short of breath with activity-improving. Nutritional intake and elimination adequate. Patient denied nausea or pain. Discharge instructions/medications reviewed with patient prior to discharge. All questions addressed. Patient belongings, discharge instructions and medications in hand. Report called to [facility]onia mu[facility]oz [facility].
--- NOTE | 2016-11-11 17:50 | PCM.DC.MED ---
Discharge Summary Date of Service Nov 11, 2016 Dates of Hospitalization Date of Hospital Admission Nov 03, 2016 at 06:12 Date of Discharge: Nov 11, 2016 Providers: Admitting Physician: Dai Hernandez DO Primary Care Physician: Geovanny Shah DO Attending Physician: Dai Hrenandez DO Diagnosis at Time of Discharge Diagnosis at Time of Discharge # Acute Influenza A respiratory infection. present on admission. Improved - Leukocytosis resolved - treated with Tamiflu from 11/04 - 11/09 # Suspected acute Pneumonia on admission - bacterial infection seems clinically unlikely at this time # Acute Dehydration. present on admission. Resolved # Anemia. chronic. stable # Hypertension. chronic. 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 Consultations 1. Cardiology Procedures XRay, CTs & MRIs Date of Service: 11/03/16 0504 PROCEDURE: CT ANGIO CHEST PULMONARY EMBOLISM ([id number]) IMPRESSION: 1. No pulmonary embolus. 2. Mildly prominent mediastinal lymph nodes, possibly reactive. Followup chest CT with intravenous contrast in 3 months is recommended to ensure resolution, and to exclude underlying neoplasm. 3. No change in bilateral adrenal nodules, as well as low-density foci within the pancreas and spleen. 4. Coronary artery disease. 5. No change in 6 mm diameter right lower lobe nodule. Dictated by: Devora Valencia M.D. on 11/03/2016 at 7:47 Approved by: Devora Valencia M.D. on 11/03/2016 at 7:53 Date of Service: 11/05/16 1322 PROCEDURE: X-RAY CHEST ONE VIEW, PORTABLE ([id number]) IMPRESSION: Bibasilar atelectasis versus aspiration or pneumonia. Correlate clinically. Dictated by: Sami KAY Interpreted: Carlos Beyer MD on 11/05/2016 at 14: 12 Transcribed by: GA on 11/05/2016 at 14:13 Approved by: Rico Beyer M.D. on 11/05/2016 at 14:18 Date of Service: 11/03/164 PROCEDURE: CT BRAIN WITHOUT CONTRAST ([id number]) IMPRESSION: 1. Volume loss and small vessel ischemic disease. 2. Chronic right frontal infarct. 3. No acute process. 4. Concordant with preliminary interpretation. Dictated by: Devora Valencia M.D. on 11/03/2016 at 7:46 Approved by: Devora Valencia M.D. on 11/03/2016 at 7:47 Date of Service: 11/03/16 0404 PROCEDURE: X-RAY PELVIS WITH BILATERAL HIPS ([id number]) IMPRESSION: No acute fracture. No osseous lesion. If clinical suspicion and/or symptoms persist, further assessment with repeat plainfilms, or advanced imaging (e.g., CT, MRI, or bone scan) may be helpful for further assessment. Dictated by: Devora Valencia M.D. on 11/03/2016 at 7:36 Approved by: Devora Valencia M.D. on 11/03/2016 at 7:37 Brief History As noted in H&P by Dr. Medina: Patient is a 80-year-old gentleman who lives at home with his who presented with the complaint of increasing shortness of breath. The patient states that for the last few days he has had an increase in shortness of breath but denies any chest pain, fever, chills, nausea, vomiting, diarrhea. The patient was found to be hypoxic in the emergency room but responded to oxygen therapy. The states that she too has also been sick lately and that the patient may have caught the cold that she may have had. The patient was found to be influenza A positive and admitted for supportive care. Hospital Course # Acute Influenza A respiratory infection. poa. - Leukocytosis resolved - Maintain oxygen saturations at 92% or above - Continue supportive care - prednisone stopped on 11/09 - treated with Tamiflu from 11/04 - 11/09 # Suspected acute Pneumonia on admission - bacterial infection seems clinically unlikely at this time - stop Abx at this time # Acute Dehydration. poa. - resolved # Anemia. chronic. - Hemoglobin and hematocrit stable # Hypertension. chronic. stable - started on Lisinopril and metoprolol per cardiology recs # Hyperlipidemia - Continue simvastatin daily # History of Afib and tachy-chloe syndrome post pacemaker - appreciate cardiology interrogating pacer - c/w Coumadin - f/u daily INR by day of d/c lungs CTA bilat. denies any further SOB Exam Vital Signs (Last) Date Time Temp Pulse Resp B/P Pulse Ox O2 Delivery O2 Flow Rate FiO2 11/11/16 11:39 91 11/11/16 11:32 94 Room Air 11/11/16 05:09 36.2 22 134/76 2.00 Test 11/03/16 03:55 11/03/16 07:13 11/03/16 11:00 11/07/16 05:49 Hold Purple Top Tube Received (Received) Activated Partial Thromboplast Time 28.7sec (22.8-33.0) D-Dimer 0.8mg/L (<0.50) Hold Blue Top Tube Received (Received) Total Creatine Kinase 63U/L (21-232) Creatine Kinase MB 1.3ng/mL (0.0-10.4) Creatine Kinase MB % % (0.0-5.0) Troponin T 0.010ug/L (0.0-0.011) Pro-B-Type Natriuretic Peptide 1001pg/mL (0-486) Hold Red Top Tube Received (Received) Hold [place] Top Tube Received (Received) Lactic Acid Level 1.5mmol/L (0.4-2.0) Urine Color Dark yellow (YELLOW) Urine Appearance Slightly cloudy Urine pH 6.0 (5.0-8.0) Urine Specific [place] 1.020 (1.003-1.035) Urine Protein 30mg/dL (NEG,TRACE) Urine Glucose (UA) Negativemg/dL (NEGATIVE) Urine Ketones Negativemg/dL (NEGATIVE) Urine Occult Blood Large (NEGATIVE) Urine Nitrite Negative (NEGATIVE) Urine Bilirubin Negative (NEGATIVE) Urine Urobilinogen Normalmg/dL (NORMAL) Urine Leukocyte Esterase Negative (NEGATIVE) Urine RBC 0-2/hpf (0-2) Urine WBC 0-5/hpf (0-5) Urine Epithelial Cells Many/hpf (NONE-MOD) Urine Crystals Amorphous phosphates Urine Bacteria None/hpf (NONE-FEW) Urine Hyaline Casts None/lpf (NONE) Urine Granular Casts None seen (NONE SEEN) Urine Waxy Casts None seen (NONE SEEN) Urine Red Blood Cell Casts None seen (NONE SEEN) Urine White Blood Cell Casts None seen (NONE SEEN) Urine Mucus Present (None Seen) Urine Trichomonas None seen (NONE SEEN) Urine Yeast None (NONE SEEN) Urine Culture Reflexed Not indicated Hold Urine Received (Received) Ionized Calcium 1.22mmol/L (1.17-1.32) Test 11/08/16 06:40 11/09/16 17:34 11/10/16 06:45 11/10/16 06:56 Neutrophils (%) (Auto) 69.4% (40-74) Lymphocytes (%) (Auto) 21.7% (14-46) Monocytes (%) (Auto) 8.3% (4-12) Eosinophils (%) (Auto) 0.2% (0-5) Basophils (%) (Auto) 0.2% (0-3) Total Bilirubin 0.2mg/dL (0.0-1.2) Aspartate Amino Transf (AST/SGOT) 67U/L (0-50) Alanine Aminotransferase (ALT/SGPT) 54U/L (0-44) Alkaline Phosphatase 50U/L (25-160) Total Protein 6.0g/dL (6.4-8.4) Albumin 3.1g/dL (3.4-5.0) Magnesium Level 1.9mg/dL (1.6-2.6) White Blood Count 6.2th/mm3 (3.8-10.1) Red Blood Count 3.75mil/mm3 (4.40-5.80) Hemoglobin 8.2g/dL (13.8-17.2) Hematocrit 30.4% (41.0-50.0) Mean Corpuscular Volume 81.1fL (81-100) Mean Corpuscular Hemoglobin 21.9pg (27.0-35.0) Mean Corpuscular Hemoglobin Concent 27.0% (32.0-37.0) Red Cell Distribution Width 16.7% (12.3-15.4) Platelet Count 180bil/L (150-400) Sodium Level 141mEq/L (134-144) Potassium Level 4.8mEq/L (3.5-5.2) Chloride Level 103mEq/L (97-108) Carbon Dioxide Level 28mmol/L (18-29) Blood Urea Nitrogen 28mg/dL (8-27) Creatinine 0.85mg/dL (0.76-1.27) Estimat Glomerular Filtration Rate 92mL/min (>59) Glucose Level 94mg/dL (60-99) Calcium Level 8.0mg/dL (8.5-10.1) Procalcitonin 0.10ng/mL (0.00-0.08) Test 11/11/16 06:54 Prothrombin Time 21.1sec (8.1-12.5) Prothromb Time International Ratio 1.95ratio Discharge Medications Discharge Medications Lisinopril (Lisinopril) 5 Mg Tablet 2.5 MG PO DAILY Prescribed by: CHILANGO VIRK MD Metoprolol Succinate ER (Metoprolol Succinate ER) 25 Mg Tab.er.24h 25 MG PO DAILY Prescribed by: CHILANGO VIRK MD Sertraline HCl (Zoloft) 50 Mg Tablet 50 MG PO DAILY (Reported) Simvastatin (Simvastatin) 10 Mg Tablet 10 MG PO HS (Reported) Warfarin Sodium (Coumadin) 4 Mg Tablet 4 MG PO DAILY (Reported) Miscellaneous Medications Falcon-3/Dha/Epa/Fish Oil (Fish Oil 1,000 mg Softgel) 1 Each Capsule 1 EACH PO ( Reported) Additional med instructions Goal INR is 2-3 Followup Plan Disposition: SNF Follow-up plan 1. Followup with primary care provider in 3-7 days Discharge Diet: Low fat, Low Sodium, Heart Healthy Discharge Activity: Other (as tolerarted and per physical therapy) Patient Instructions Recheck INR in 2-3 days and adjust Coumadin dose as needed with goal INR 2-3 Follow-up Provider: Geovanny Shah DO Time spent 30 min copies to: Geovanny Shah Masoud Nov 11, 2016 17:50
== END 2016-11-11 14:14 | DRG 193 ==
LOC: SED 03:54 → MPC 06:12
PROVIDERS: ADMIT Internal Medicine; ATTEND Neuromusculoskeletal Medicine & OMM
PROC: 4A033R1 Measurement of Arterial Saturation, Peripheral, Percutaneous Approach (ICD-10-PCS; principal; 2016-11-06)
PROC: 4B02XSZ Measurement of Cardiac Pacemaker, External Approach (ICD-10-PCS; 2016-11-10)
DX: J10.1 Influenza due to other identified influenza virus with other respiratory manifestations (principal); J96.00 Acute respiratory failure, unspecified whether with hypoxia or hypercapnia; J98.11 Atelectasis; I47.1 Supraventricular tachycardia; I48.92 Unspecified atrial flutter; I10 Essential (primary) hypertension; I48.2 Chronic atrial fibrillation; E78.5 Hyperlipidemia, unspecified; Z95.0 Presence of cardiac pacemaker; Z79.01 Long term (current) use of anticoagulants; Z87.891 Personal history of nicotine dependence; E86.0 Dehydration; Z66 Do not resuscitate; D64.9 Anemia, unspecified